=== PATIENT | female | born 1955 | race Two or more races ===

== ENCOUNTER 2017-05-15 07:49 | Inpatient (IN) | payer SELFPAY ==
[~2017-05-15] VITALS: Ht 170.2 cm; Wt 75.1 kg
--- NOTE | 2017-05-15 08:07 | NUR ---
BIB RA FROM HOME D/T GENERALIZED WEAKNESS, CAREGIVER UNABLE TO TAKE CARE OF ANYMORE. 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 JAUNDICE IN APPEARANCE, LETHARGIC, A/OX 2. BREATHING EVEN AND UNLABORED. NO SOB. VITALS REMAIN STABLE. SAFETY AND COMFORT MEASURES IN PLACE. AWAITING MD ORDERS.
--- NOTE | 2017-05-15 08:10 | NUR ---
NEW IV STARTED ON LAC, 20 G. BLOOD DRAWN AND SENT TO LAB.
--- NOTE | 2017-05-15 08:17 | NUR ---
WIRE FENCE BUILDER AT BEDSIDE.
[2017-05-15 08:30] LABS: BASOPHILS % (AUTO) 0.3 % (0.0-2.0); EOSINOPHILS # (AUTO) 0.1 /CMM (0.0-0.7); EOSINOPHILS % (AUTO) 1.2 % (0.0-6.0); HEMATOCRIT 31 % (33-45); HEMOGLOBIN 10.9 g/dL (11.5-14.8); LYMPHOCYTES # (AUTO) 0.5 /CMM (0.8-4.8); LYMPHOCYTES % (AUTO) 9.1 % (20.0-44.0); MEAN CORPUSCULAR HEMOGLOBIN 35 PG (26.0-33.0); MEAN CORPUSCULAR HGB CONC 35 g/dl (31.0-36.0); MEAN CORPUSCULAR VOLUME 99 fL (82-100); MONOCYTES # (AUTO) 0.9 /CMM (0.1-1.30); MONOCYTES % (AUTO) 15.5 % (2.0-12.0); NEUTROPHILS % (AUTO) 73.9 % (43.0-81.0); RDW COEFFICIENT OF VARIATION 25.4 (11.5-15.0); WHITE BLOOD COUNT (AUTO) 5.5 K/uL (4.3-11.0)
[2017-05-15 08:33] LABS: PLATELET COUNT (AUTO) 42 /CMM (150-450)
[2017-05-15 08:38] LABS: CALCIUM, SERUM 9.4 mg/dL (8.5-10.1); POTASSIUM 4.2 mmol/L (3.5-5.1)
[2017-05-15 08:41] LABS: INR 1.3 (0.87-1.13); PROTHROMBIN TIME 13.5 SECS (9.5-12.7)
[2017-05-15 08:53] LABS: ALBUMIN 4.3 g/dL (3.4-5.0); BILIRUBIN,TOTAL 12.2 mg/dL (0.2-1.0)
[2017-05-15] MEDS ORDERED: ONDANSETRON HCL/PF 4 MG/2 ML VIAL ONE (10:49)
[2017-05-15] MEDS ORDERED: HYDROMORPHONE 1 MG/1 ML DISP.SYRIN ONE (10:49)
[2017-05-15] MEDS ORDERED: ONDANSETRON HCL/PF - ER 4 MG/2 ML VIAL IV ONE (11:00)
[2017-05-15] MEDS ORDERED: HYDROMORPHONE 1 MG/1 ML DISP.SYRIN IV ONE (11:00)
--- NOTE | 2017-05-15 11:01 | NUR ---
PATIENT PULLED OUT IV ON LAC. SITE SECURED WITH GAUZE AND TAPE. NEW IV STARTED ON RAC, 20 G. PATIENT MEDICATED PER MD ORDERS.
[2017-05-15 12:35] LABS: LYMPHOCYTES % (MANUAL) 1 % (16-48); MONOCYTES % (MANUAL) 14 % (0-11.0); NEUTROPHILS % (MANUAL) 85 (42-76)
--- NOTE | 2017-05-15 14:35 | NUR ---
REPORT GIVEN TO ESPERANZA SALGADO FOR IFEOMA UPON ADMISSION.
--- NOTE | 2017-05-15 14:46 | NUR ---
EKG NOT DONE, CANCELLED PER MD. PATIENT TRANSPORTED TO [facility] VIA STRETCHER. RNESPERANZA TO PROVIDE IFEOMA.
--- NOTE | 2017-05-15 14:59 | NUR ---
PATIENT ARRIVED TO UNIT. PLACED IN ROOM 306-2
[2017-05-15 15:00] VITALS: BP 137/79
[2017-05-15 16:00] VITALS: BP 143/85
[2017-05-15] MEDS ORDERED: LORAZEPAM INJ 2 MG/ML VIAL IV PRN (17:00)
--- NOTE | 2017-05-15 18:15 | NUR ---
PATIENT AGITATED AND TRYING TO GET OFF BED. ATIVAN ADMINISTERED
[2017-05-15] MEDS: MORPHINE SULFATE INJ 4 MG/ML DISP.SYRIN IV PRN (18:24)
--- NOTE | 2017-05-15 18:25 | NUR ---
PATIENT IS STILL AGITATED AND TRYING TO GET OFF BED. ADMINISTERED MORPHINE
--- NOTE | 2017-05-15 18:42 | NUR ---
PATIENT IS IN BED WITH HER EYES CLOSED. BREATHING EVENLY AND DEEPLY.
--- NOTE | 2017-05-15 18:43 | NUR ---
RN ADMITTING NOTES PATIENT ARRIVED TO UNIT AROUND 1500. PATIENT WAS AGITATED AT FIRST AND THAN FELL A SLEEP. WOKE UP AT 1800, AGITATED TRYING TO GET OFF BED, SCREAMING AND UN-RESTED. ATIVAN AND MORPHINE ADMINISTERED. DR LEBRON MADE AWARE. WAITING ADMITTING ORDERS Addendum: 05/15/17 at 1846 by ADALBERTO RON RN BED IN LOW POSITION, LOCKED AND 3 SIDE RAILS ARE UP FOR SAFETY.
[2017-05-15] MEDS ORDERED: ACETAMINOPHEN 325 MG TABLET PO PRN (19:00)
[2017-05-15] MEDS ORDERED: OLANZAPINE 10 MG VIAL IM ONE (19:00)
[2017-05-15] MEDS ORDERED: Z GUARD REMEDY 2 OZ OINT TP PRN (19:00)
[2017-05-15] MEDS ORDERED: ONDANSETRON HCL/PF 4 MG/2 ML VIAL IVP PRN (19:00)
--- NOTE | 2017-05-15 19:10 | NUR ---
MS/RN NOTES RECEIVED PT. LYING IN BED RESTING. PT. IS EASILY AROUSABLE TO NAME. PT. IS AWAKE, ALERT AND ORIENTED X1-2. BREATHING EVEN AND UNLABORED ON ROOM AIR. NO SOB, RESPIRATORY DISTRESS OR S/S OF PAIN. PT. WITH RIGHT AC 20 GAUGE PERIPHERAL IV PRESENT, PATENT AND INTACT ADMINISTERING TO PT. D5 1/2 NS @ 75ML/HR. BED LOCKED AND IN LOWEST POSITION, SIDE RAILS UP X3, BED ALARM ON, CALL LIGHT WITHIN REACH, WILL CONTINUE TO MONITOR.
[2017-05-15] MEDS: IV D5/0.45 NACL 1,000 ML IV PRN (19:12)
--- NOTE | 2017-05-15 19:25 | NUR ---
MS/RN NOTES PT. IS RESTING COMFORTABLY IN BED. DID NOT ADMINISTER TO PT. 1900 ZYPREXA ORDERED BECAUSE PT. IS VERY SLEEPY. WILL CONTINUE TO MONITOR.
[2017-05-15 20:25] VITALS: BP 102/61
[2017-05-16 00:57] LABS: BILIRUBIN,DIRECT 7.3 mg/dL (0.0-0.2); BILIRUBIN,TOTAL 12.7 mg/dL (0.2-1.0)
--- NOTE | 2017-05-16 06:23 | NUR ---
MS/RN NOTES PT. IS LYING IN BED RESTING. PT. IS EASILY AROUSABLE TO NAME. PT. IS AWAKE, ALERT AND ORIENTED X1. BREATHING EVEN AND UNLABORED ON ROOM AIR. NO SOB, RESPIRATORY DISTRESS OR S/S OF PAIN. PT. WITH RIGHT AC 20 GAUGE PERIPHERAL IV PRESENT, PATENT AND INTACT ADMINISTERING TO PT. D5 1/2 NS @ 75ML/HR. ALL PT. NEEDS MET. BED LOCKED AND IN LOWEST POSITION, SIDE RAILS UP X3, BED ALARM ON, CALL LIGHT WITHIN REACH, WILL ENDORSE TO DAYSHIFT NURSE FOR CONTINUITY OF CARE.
--- NOTE | 2017-05-16 07:55 | NUR ---
RN OPENING NOTES PATIENT RESTING COMFORTABLY IN BED. AOX1/2. PATIENT SKIN COLOR APPEARS JAUNDICED. RIGHT AC 20G PATENT AND INTACT WITH D5 1/2 NS RUNNING AT 75ML/HR. PATIENT DENIES PAIN. DENIES SOB, CP. PATIENT DENIES ANY PAIN. SATURATING ADEQUATELY ON RA. BED LOCKED IN THE LOWEST POSITION WITH SIDE RAILS UP X2. CALL LIGHT WITHIN REACH. WILL CONTINUE TO MONITOR, ASSESS AND EDUCATE PATIENT THROUGHOUT SHIFT.
[2017-05-16 08:00] VITALS: BP 108/62
--- NOTE | 2017-05-16 09:00 | NUR ---
RN NOTES IV DISLODGED. NEW IV PLACED RIGHT AC 20 G. PATENT AND INTACT. ONE ATTEMPT PATIENT TOLERATED WELL. WILL CONTINUE TO MONITOR.
[2017-05-16] MEDS: MORPHINE SULFATE INJ 4 MG/ML DISP.SYRIN IV PRN (12:18)
[2017-05-16 14:02] LABS: MONOCYTES # (AUTO) 0.8 /CMM (0.1-1.30); WHITE BLOOD COUNT (AUTO) 6.2 K/uL (4.3-11.0)
[2017-05-16 14:15] LABS: BASOPHILS % (AUTO) 0.3 % (0.0-2.0); EOSINOPHILS % (AUTO) 0.7 % (0.0-6.0); HEMATOCRIT 26 % (33-45); LYMPHOCYTES # (AUTO) 0.6 /CMM (0.8-4.8); LYMPHOCYTES % (AUTO) 9.1 % (20.0-44.0); MEAN CORPUSCULAR HEMOGLOBIN 35 PG (26.0-33.0); MEAN CORPUSCULAR HGB CONC 35 g/dl (31.0-36.0); MEAN CORPUSCULAR VOLUME 100 fL (82-100); MONOCYTES % (AUTO) 12.9 % (2.0-12.0); NEUTROPHILS # (AUTO) 4.8 /CMM (1.8-8.9); RDW COEFFICIENT OF VARIATION 24.1 (11.5-15.0); RED BLOOD CELL COUNT(AUTO) 2.55 MIL/uL (4.0-5.2)
[2017-05-16 14:20] LABS: PLATELET COUNT (AUTO) 24 /CMM (150-450)
[2017-05-16 16:00] VITALS: BP 122/67
[2017-05-16 16:02] LABS: BAND % (MANUAL) 4 % (0.0-5.0); LYMPHOCYTES % (MANUAL) 5 % (16-48); MONOCYTES % (MANUAL) 7 % (0-11.0); NEUTROPHILS % (MANUAL) 84 (42-76)
[2017-05-16] MEDS ORDERED: LORAZEPAM INJ 20 MG in IV NS 0.9% 90 ML IV PRN (17:30)
[2017-05-16] MEDS ORDERED: MORPHINE SULFATE PF DRIP 250 MG in IV D5W 240 ML IV PRN (17:30)
[2017-05-16] MEDS ORDERED: LORAZEPAM INJ 2 MG/ML VIAL IV STA (17:48)
[2017-05-16] MEDS ORDERED: MORPHINE SULFATE INJ 4 MG/ML DISP.SYRIN IV STA (17:48)
[2017-05-16 17:56] LABS: BILIRUBIN,TOTAL 13.5 mg/dL (0.2-1.0); CALCIUM, SERUM 9.2 mg/dL (8.5-10.1); CREATININE 3.5 mg/dL (0.6-1.3); MAGNESIUM 2.2 mg/dL (1.8-2.4); PHOSPHORUS 5.5 mg/dL (2.5-4.9); POTASSIUM 5.6 mmol/L (3.5-5.1); TOTAL PROTEIN, SERUM 6.4 g/dL (6.4-8.2)
[2017-05-16] MEDS ORDERED: SCOPOLAMINE HBR 1 EA PATCH.TD72 TD SCH (18:00)
[2017-05-16] MEDS ORDERED: MORPHINE SULFATE 30 MG in IV NS 0.9% 28 ML, PCA TOTAL VOLUME 1 BAG IV PRN ×3 (18:00)
--- NOTE | 2017-05-16 18:00 | NUR ---
RN NOTES DISCUSSED CARE PLAN WITH DR. LEBRON PATIENT PLACED ON COMFORT CARE.
[2017-05-16 18:05] LABS: THYROID STIMULATING HORMONE 1.909 uIU/mL (0.358-3.74)
--- NOTE | 2017-05-16 19:30 | NUR ---
RN CLOSING NOTES PATIENT IS RESTING COMFORTABLY IN BED. NO ACUTE DISTRESS. PLATELET CRITICALLY LOW. REPORTED TO DR. LEBRON. BLEEDING GUMS NOTED. RESPIRATIONS EVEN AND UNLABORED. IV PATENT AND INTACT. BED LOCKED IN THE LOWEST POSITION SIDE RAILS UP X2. COMFORT MEASURES IMPLEMENTED. CALL LIGHT WITHIN REACH. WILL ENDORSE TO NIGHT RN FOR IFEOMA.
--- NOTE | 2017-05-16 19:35 | NUR ---
RN OPENING NOTES RECEIVED REPORT FROM MARIELA RNWALE. FOUND Pt ASLEEP IN BED. NO S/S OF ACUTE DISTRESS OR SOB NOTED. Pt IS A/OX1-2. IV ACCESS ON RAC #20G, IVF D5 1/2NS @75ML/HR. SAFETY MEASURES IN PLACE. BED LOW LOCKED, HOB ELEVATED, SIDE RAILS UP, BED ALARM ON, CALL LIGHT AND BEDSIDE TABLE WITHIN REACH. WILL CONTINUE TO MONITOR Pt THROUGHOUT THE NIGHT FOR SAFETY.
[2017-05-16 20:00] VITALS: BP 116/56
[2017-05-16] MEDS ORDERED: KEY,NONCONTROL,TO KEEP IN PYXI 1 EA MC ONE ×4 (20:09→20:22)
[2017-05-16] MEDS ORDERED: LORAZEPAM INJ 2 MG/ML VIAL IV PRN (22:00)
[2017-05-17] MEDS ORDERED: MORPHINE SULFATE 30 MG in IV NS 0.9% 28 ML, PCA TOTAL VOLUME 1 BAG IV PRN ×6
--- NOTE | 2017-05-17 02:45 | NUR ---
NAOMI ALLRED FORGOT TO SCAN MORPHINE BAG. STARTED INFUSION ON 05/16/17 2345. Addendum: 05/17/17 at 0308 by JOSE CHATMAN RN STARTED INFUSION RATE AT 1MG/HR (1MG=1ML)
[2017-05-17] MEDS ORDERED: LORAZEPAM 1 MG TABLET ONE (02:58)
[2017-05-17] MEDS ORDERED: LORAZEPAM INJ 2 MG/ML VIAL ONE (03:00)
[2017-05-17] MEDS: IV D5/0.45 NACL 1,000 ML IV PRN (03:17)
--- NOTE | 2017-05-17 06:55 | NUR ---
RN CLOSING NOTES Pt ON COMFORT CARE MEASURES. CURRENTLY ON A CONTINUOUS MORPHINE DRIP, RATE @ 1MG/HR. WITH ATIVAN 1MG PRN Q1H. ALL NEEDS MET AND ATTENDED TO. SAFETY MEASURES IN PLACE. WILL ENDORSE TO DAYSHIFT RN FOR Pt's IFEOMA.
--- NOTE | 2017-05-17 07:31 | NUR ---
RN OPENING NOTES RECEIVED PATIENT ASLEEP IN BED. NO S/S OF ACUTE DISTRESS OR SOB NOTED. PATIENT ON COMFORT MEASURES. IV ACCESS ON RAC #20G, IVF D5 1/2NS @75ML/HR, ON MORPHINE DRIP @ 1MG/HR. BLOODY GUMS NOTED. SAFETY MEASURES IN PLACE. BED LOW POSITION, LOCKED, HOB ELEVATED, SIDE RAILS UP, BED ALARM ON, CALL LIGHT AND BEDSIDE TABLE WITHIN REACH. WILL CONTINUE TO MONITOR ACCORDINGLY.
[2017-05-17 08:00] VITALS: BP 102/60
[2017-05-17 16:00] VITALS: BP 93/54
--- NOTE | 2017-05-17 18:45 | NUR ---
RN NOTES FOUND PATIENT ON BED WITH NO PULSE, NOT BREATHING, PATIENT . WITNESS BY SYSTEMS DEVELOPMENT CONSULTANT, NINO. POSTMORTEM CARE DONE. CALLED [facility], CASE # [id number]. NOTIFIED DR WALTER LEBRON. NOTIFIED FAMILY/FRIEND TOM CANNON. CONTRACT DESIGNER AWARE.
== END 2017-05-17 21:50 | disposition expired | DRG 441 ==
LOC: ER 07:49 → MED 15:20
PROVIDERS: ADMIT Nurse Practitioner Acute Care; ATTEND Nurse Practitioner Acute Care
DX: K72.90 Hepatic failure, unspecified without coma (principal); N17.0 Acute kidney failure with tubular necrosis; G93.40 Encephalopathy, unspecified; J91.0 Malignant pleural effusion; R18.8 Other ascites; C79.51 Secondary malignant neoplasm of bone; D69.6 Thrombocytopenia, unspecified; E87.1 Hypo-osmolality and hyponatremia; C50.919 Malignant neoplasm of unspecified site of unspecified female breast; D63.8 Anemia in other chronic diseases classified elsewhere; I10 Essential (primary) hypertension; Z51.5 Encounter for palliative care; Z66 Do not resuscitate; E80.6 Other disorders of bilirubin metabolism
CPT/HCPCS: 36415; 80053-TC; 80061-TC; 82247-TC; 82248-TC; 83735-TC; 84100-TC; 84443-TC; 84484-TC; 85025-TC; 85730-TC; 87081-TC; A4216; A4606; A6403; J1170; J2060; J2270; J2274; J2405; J3490; J7030; J7060; Z7610